=== PATIENT | female | born 1950 | race Hispanic/Latino ===

== ENCOUNTER 2018-03-20 22:58 | Emergency (ER) | payer MEDICARE ==
[~2018-03-20] VITALS: Ht 157.5 cm; Wt 69.9 kg
[2018-03-21 02:00] LABS: CLARITY,URINE CLEAR (CLEAR); COLOR,URINE YELLOW (YELLOW)
[2018-03-21 02:01] LABS: BILIRUBIN,URINE NEGATIVE (NEGATIVE); KETONES,URINE NEGATIVE (NEGATIVE); LEUKOCYTE ESTERASE ,URINE NEGATIVE (NEGATIVE); NITRITE,URINE NEGATIVE (NEGATIVE); PROTEIN,URINE DIPSTICK 1+ (NEGATIVE); URINE UROBILINOGEN 0.2 mg/dL (0.2 - 1)
[2018-03-21 02:16] LABS: BACTERIA,URINE RARE /HPF; EPITHELIAL CELLS,URINE FEW /LPF; RBC,URINE 0-5 /HPF (0-5); WBC,URINE (MAN) 0-5 /HPF (0-5)
[2018-03-21 02:17] LABS: MUCUS,URINE FEW (RARE)
== END 2018-03-21 02:15 | disposition left against medical advice (07) ==
LOC: ER 22:58
DX: R42 Dizziness and giddiness (principal); E11.65 Type 2 diabetes mellitus with hyperglycemia; I10 Essential (primary) hypertension
CPT/HCPCS: 36415; 81001; 82948; 87086

== ENCOUNTER → 2023-04-04 | Outpatient (CLI) | payer MEDICARE ==
[~2023-04-04] MED LIST: GADOBENATE DIMEGLUMINE 1 ML IV ONE
[2023-04-04 10:22] LABS: CREATININE, SERUM 0.9 mg/dL (0.57-1.11)
== END ==
LOC: MRI 09:14
PROVIDERS: ATTEND Internal Medicine Gastroenterology
DX: K76.9 Liver disease, unspecified (principal); D18.09 Hemangioma of other sites; K76.0 Fatty (change of) liver, not elsewhere classified
CPT/HCPCS: 36415; 74183; 82565; 84520

== ENCOUNTER 2023-09-12 12:02 | Outpatient (RCR) | payer MEDICARE | END 2023-10-10 | LOC: PT 12:02 | PROVIDERS: ATTEND Student in an Organized Health Care Education/Training Program | DX: M50.93 Cervical disc disorder, unspecified, cervicothoracic region (principal) ==